=== PATIENT | female | born 1995 | race African-American/Black ===

== ENCOUNTER 2017-04-08 19:50 | Emergency (ER) | payer OTHER ==
[2017-04-08 22:30] VITALS: BP 131/82
== END 2017-04-08 22:30 | disposition home or self-care (01) ==
LOC: ED 19:50
DX: L25.9 Unspecified contact dermatitis, unspecified cause (principal); R03.0 Elevated blood-pressure reading, without diagnosis of hypertension

== ENCOUNTER 2017-04-16 16:59 | Emergency (ER) | payer OTHER ==
[2017-04-16 17:16] VITALS: BP 136/69
== END 2017-04-16 18:57 | disposition home or self-care (01) ==
LOC: ED 16:59
DX: L50.9 Urticaria, unspecified (principal); L25.9 Unspecified contact dermatitis, unspecified cause
CPT/HCPCS: J1200